=== PATIENT | male | born 1980 | race Caucasian/White ===

== ENCOUNTER → 2016-10-17 | Outpatient (CLI) | payer BC ==
[~2016-10-17] MED LIST: CLIN-79 PO
[2016-10-17 11:17] VITALS: BP 132/89
--- NOTE | 2016-10-17 11:17 | Urgent Care T Sheet Gen (E) ---
Intake General Temperature (Fahrenheit): 97.2 Pulse: 83 Blood Pressure Systolic: 132 Blood Pressure Diastolic: 89 Respirations: 20 SPO2: 99 Description of Symptoms Patient presents with possible dental infection. Patient states he is missing several teeth and has had numerous infections over the years. Last night, noted pain, redness, swelling and purulent drainage along the L side of the upper jaw. No fever. Called his dentist, Dr Lynch, however wasn't able to be seen today. History of Present Illness Allergies: Coded Allergies: Penicillins (Verified Allergy, 10/17/16) Home Meds Active Scripts Clindamycin HCl 300 Mg [id number] Mg PO TID Infection #21 CAP Ref 0 Prov:DUNG POSADAS 10/17/16 Respiratory Constitutional Symptoms: No syptoms reported EENTM: Mouth Pain Respiratory: No symptoms reported Cardiovascular: No symptoms reported Gastrointestinal/Abdominal: No symptoms reported All Other Systems Reviewed Remaining Systems: All other systems reviewed with negative findings Physical Exam Physical Exam General Appearance: WD/WN No apparent distress Eyes, Ears, Nose, Throat Ex: Other (poor dentition. several teeth are missing. there is redness and purulent drainage noted along the L upper jaw. cheek swelling is noted along the L side of the face. ) Departure Urgent Care Impression Impression: Primary Impression: Dental infection Departure Disposition: HOME OR SELF-CARE Condition: Stable Additional Instructions: With his PCN allergy, I started him on Clindamycin. Instructed him to call his dentist immediately for a f/u appt May alternate Tylenol and ibuprofen for pain relief Return as needed Patient understands DC instructions. All questions were answered. Scripts Clindamycin HCl 300 Mg [id number] Mg PO TID Infection #21 CAP Ref 0 Prov:DUNG POSADAS 10/17/16 End of report . DUNG POSADAS Oct 17, 2016 10:47
== END ==
LOC: MHUC 10:31
PROVIDERS: ATTEND Physician Assistant
DX: K04.7 Periapical abscess without sinus (principal)
CPT/HCPCS: 99212